=== PATIENT | female | born 1985 | race African-American/Black ===

== ENCOUNTER 2018-07-16 09:11 | Emergency (ER) | payer OTHER ==
[~2018-07-16] VITALS: Ht 188 cm; Wt 131.5 kg
[2018-07-16 09:18] VITALS: BP 133/85
--- NOTE | 2018-07-16 09:30 | PHYS DOC ---
Adult General Chief Complaint Chief Complaint: [facility] HPI Patient is a 32 year old female who presents with left shoulder pain. Patient states she tripped and fell on the ice. She fell backwards landing on the posterior aspect of the left shoulder. She did not strike her head or have loss of consciousness. She landed on the left shoulder. She presents to the ER today complaining of pain with range of motion of that joint. No additional injuries. No additional complaints Review of Systems Review of Systems Constitutional: Denies fever or chills Eyes: Denies change in visual acuity Respiratory: Denies Cardiovascular: No additional information not addressed in HPI : Denies dysuria Musculoskeletal: Denies back pain, shoulder pain as documented above Integument: Denies rash Neurologic: Denies All other systems were reviewed and found to be within normal limits, except as documented in this note. Allergies Allergies Allergies Coded Allergies Type Severity Reaction Last Updated Verified nickel Allergy Unknown 07/16/18 Yes Physical Exam Physical Exam Constitutional: Well developed, well nourished, no acute distress, non-toxic appearance HENT: Normocephalic Eyes: PERRLA, EOMI Neck: Normal range of motion, no tenderness Cardiovascular:Heart rate regular rhythm, no murmur Lungs & Thorax: Bilateral breath sounds clear to auscultation Skin: Warm, dry, no erythema, no rash Back: No tenderness Extremities: no obvious deformity of the left shoulder. ROM is mildly limited 2 /2 pain. 2+ radial pulses. Sensation to light touch intact over all dermatomes Neurologic: Alert and oriented X 3 Psychologic: Affect normal Current Patient Data Vital Signs Vital Signs Date Time Temp Pulse Resp B/P (MAP) Pulse Ox O2 Delivery O2 Flow Rate FiO2 07/16/18 09:18 98.4 65 18 133/85 (101) 98 Room Air 98.4 EKG EKG [] Radiology/Procedures Radiology/Procedures [] Course & Med Decision Making Course & Med Decision Making Pertinent Labs and Imaging studies reviewed. (See chart for details) 09:20: Patient is seen and examined. No acute distress. Xray ordered. 10:50: No acute findings on x-ray. Plan is for discharge home. The patient is agreeable. She is placed on some medications for pain. Advised to follow-up with her primary care doctor. Return to the ER as needed. Dragon Disclaimer Dragon Disclaimer This electronic medical record was generated, in whole or in part, using a voice recognition dictation system. Departure Departure Disposition: HOME, SELF-CARE Condition: GOOD Scripts Tramadol Hcl (TRAMADOL HCL) 50 Mg Tablet 50 MG PO BID PRN for SEVERE PAIN, #20 TAB 0 Refills Prov: MARIA ALEJANDRA MAIN DO 07/16/18 Ibuprofen (IBUPROFEN) 800 Mg Tablet 800 MG PO PRN TID PRN for PAIN, #30 TAB take with food or milk to avoid upsetting stomach Prov: MARIA ALEJANDRA MAIN DO 07/16/18 MARIA ALEJANDRA MAIN DO Jul 16, 2018 09:30
--- NOTE | 2018-07-16 09:53 | RAD ---
Left shoulder, 3 views, 07/16/2018: HISTORY: Left shoulder pain after a fall No fracture or dislocation is identified. IMPRESSION: No acute bony abnormality is detected. Electronically signed by: Rudy Rogers MD (07/16/2018 9:49 AM) [facility]
[2018-07-16] MEDS ORDERED: IBUP-1060 PO (10:08)
[2018-07-16] MEDS ORDERED: TRAM50TA PO (10:08)
== END 2018-07-16 10:28 | disposition home or self-care (01) ==
LOC: ER 09:11
DX: M25.512 Pain in left shoulder (principal); Z91.048 Other nonmedicinal substance allergy status; W00.0XXA Fall on same level due to ice and snow, initial encounter; Y93.89 Activity, other specified; Y92.89 Other specified places as the place of occurrence of the external cause; Y99.8 Other external cause status
CPT/HCPCS: 73030; 99284

== ENCOUNTER 2020-03-06 10:58 | Emergency (ER) | payer OTHER ==
[~2020-03-06] VITALS: Ht 185.4 cm; Wt 129.5 kg
[~2020-03-06 10:58] MED LIST: IBUP-1060 PO; TRAM50TA PO
[2020-03-06] MEDS ORDERED: IV NORMAL SALINE 1000ML BAG 1,000 ML IV SCH (11:14)
--- NOTE | 2020-03-06 11:17 | PHYS DOC ---
Past Medical History Past Medical History: No Pertinent History Past Surgical History: No Surgical History Smoking Status: Never Smoker Alcohol Use: Occasionally Drug Use: None General Adult EDM: Chief Complaint: NAUSEA/VOMITING/DIARRHA HPI: HPI: Patient is a 34 year old female who presents with 2 hours prior to coming emergency room she began feeling very nauseated and vomiting. She states she has not ate since last night. She states last night she had an ice cream at 2100. She denies any pain but states that the muscles are spasming in her stomach because she is having to dry heave. She states that the only reason why she has any epigastric pain. She states she basically just feels nauseated. She states her last stool was this morning and was normal for her. She states that she just got off her menstrual 1 week ago. She denies diarrhea, fever, cough, headache, dizziness, syncope, chest pain, shortness of air, numbness or tingling, vision changes, focal weakness. She denies past medical history except for having 2 babies naturally. She states that before coming her sister in law gave her a nausea pill of which she does not know the name of it but she vomited immediately after taking it. She rates her nausea discomfort at a 10 out of 10. Review of Systems: Review of Systems: Constitutional: Denies fever or chills. Hot flashes [] Eyes: Denies change in visual acuity. [] HENT: Denies nasal congestion or sore throat. [] Respiratory: Denies cough or shortness of breath. [] Cardiovascular: Denies chest pain or edema. [] GI: abdominal pain, nausea, vomiting, denies bloody stools or diarrhea. [] : Denies dysuria. [] Musculoskeletal: Denies back pain or joint pain. [] Integument: Denies rash. [] Neurologic: Denies headache, focal weakness or sensory changes. [] Endocrine: Denies polyuria or polydipsia. [] Lymphatic: Denies swollen glands. [] Psychiatric: Denies depression or anxiety. [] Heart Score: Risk Factors: Risk Factors: DM, Current or recent (<one month) smoker, HTN, HLP, family history of CAD, obesity. Risk Scores: Score 0 - 3: 2.5% MACE over next 6 weeks - Discharge Home Score 4 - 6: 20.3% MACE over next 6 weeks - Admit for Clinical Observation Score 7 - 10: 72.7% MACE over next 6 weeks - Early Invasive Strategies Allergies: Allergies: Allergies Coded Allergies Type Severity Reaction Last Updated Verified nickel Allergy Unknown 07/16/18 Yes Physical Exam: PE: Constitutional: Well developed, well nourished, no acute distress, non-toxic appearance. [] HENT: Normocephalic, atraumatic, bilateral external ears normal, oropharynx moist, no oral exudates, nose normal. [] Eyes: PERRLA, EOMI, conjunctiva normal, no discharge. [] Neck: Normal range of motion, no tenderness, supple, no stridor. [] Cardiovascular:Heart rate regular rhythm, no murmur [] Lungs & Thorax: Bilateral breath sounds clear to auscultation [] Abdomen: Bowel sounds normal, soft, no tenderness, no masses, no pulsatile masses. [] Skin: Warm, dry, no erythema, no rash. [] Back: No tenderness, no CVA tenderness. [] Extremities: No tenderness, no cyanosis, no clubbing, ROM intact, no edema. [] Neurologic: Alert and oriented X 3, normal motor function, normal sensory function, no focal deficits noted. [] Psychologic: Affect normal, judgement normal, mood normal. Tearful[] EKG: EK and read by Dr Mueller as Sinus Rhythm and no STEMI[] Radiology/Procedures: Radiology/Procedures: [] Impression: [facility] [address] [place] [address] IMAGING REPORT Signed PATIENT: DARYA LEE RACCOUNT: [id number] : 1985 LOCATION: ER AGE: 34 SEX: F EXAM STATUS: REG ER ORD. PHYSICIAN: VERONICA MICHAELS APRN REASON: upper abd pain and vomiting PROCEDURE: CHEST PA & LATERAL INDICATION: Reason: upper abd pain and vomiting / Spl. Instructions: / History: COMPARISON: None. FINDINGS: Frontal and lateral views of the chest obtained Cardiac silhouette is near the upper limits of normal in size. Mild hazy opacities at the lung bases IMPRESSION: * Mild haziness at lung bases which could be secondary to atelectasis although an early infiltrate could have this appearance as well. Electronically signed by: Elver Samson MD (03/06/2020 1:20 PM) [id number] DICTATED and SIGNED BY: ELVER SAMSON MD DATE: 03/06/20 1320 [facility] [address] [place] [address] IMAGING REPORT Signed PATIENT: DARYA LEE RACCOUNT: [id number] : 1985 LOCATION: ER AGE: 34 SEX: F EXAM STATUS: REG ER ORD. PHYSICIAN: VERONICA MICHAELS APRN REASON: nausea and vomiting PROCEDURE: CT ABD PELV W/ IV CONTRST ONLY EXAM: CT Abdomen and Pelvis with IV contrast CLINICAL HISTORY: Nausea and vomiting. COMPARISON: None. TECHNIQUE: Helical CT of the abdomen and pelvis was performed following the administration of IV contrast. Axial, coronal and sagittal reformatted images were generated. ---PQRS compliance statement - One or more of the following individualized dose reduction techniques were utilized for this study: 1. Automated exposure control 2. Adjustment of the mA and/or kV according to patient size 3. Use of iterative reconstruction technique--- FINDINGS: Lower chest: Motion artifact in the lung bases limits evaluation. Within these constraints, the lung bases are clear. Abdomen and pelvis: Liver and biliary system: Liver is enlarged measuring 23.5 cm in length. No focal liver lesion. Mild hepatic hypoattenuation likely fatty liver. Gallbladder is contracted but otherwise unremarkable. Spleen: Unremarkable Pancreas: Unremarkable Adrenal glands: Unremarkable Kidneys: Symmetric nephrograms. No focal renal lesion. No hydronephrosis. No hydroureter. Lymph nodes/retroperitoneum: No abdominal or pelvic lymphadenopathy. Vessels: Aorta is normal in caliber. Bowel/Peritoneal cavity: Moderate colonic stool content is seen. No small or large bowel dilatation. No bowel obstruction. Appendix is normal. No abdominal or pelvic ascites. Abdominal wall: Trace fat-containing periumbilical hernia is seen. Bladder: Borderline wall thickening may be seen with cystitis or under distended state. Bones: Partial lumbarization of S1 with degenerative changes centered at L5-S1 and associated endplate bone sclerosis. IMPRESSION: 1. Hepatomegaly with hepatic hypoattenuation, fatty liver. 2. No small or large bowel dilatation. 3. Borderline wall thickening may be seen with cystitis or under distended state. Electronically signed by: Sheng Thomson MD (03/06/2020 1:30 PM) [facility] DICTATED and SIGNED BY: SHENG THOMSON MD DATE: 03/06/20 1330 Course & Med Decision Making: Course & Med Decision Making Pertinent Labs and Imaging studies reviewed. (See chart for details) COVID-19 CRITERIA: The patient was evaluated during the global COVID-19 pandemic, and that diagnosis was suspected/considered upon their initial presentation. Their evaluation, treatment and testing was consistent with current guidelines for patients who present with complaints or symptoms that may be related to COVID-19. See HPI. Alert and oriented x4. Ambulatory with steady gait. Speaks in full clear sentences. Tearful. Lungs are clear to auscultation all lobes. Abdomen soft and nontender. Chest x-ray shows some mild haziness in bilateral lower lobes. CT shows acute cystitis. Patient will be placed on Keflex antibiotic and given Zofran prescriptions. Patient follow-up with her primary care physician. Patient states she is feeling much better. Patient has not vomited since she has been in the ED. [] Dragon Disclaimer: Dragon Disclaimer: This electronic medical record was generated, in whole or in part, using a voice recognition dictation system. COVID-19 Patient Risks: Age 65 or older: No Sign of co-morbidity: Yes Exp to person + for COVID: No Exp to PUI: No Travel from affected area: No Lower respiratory symptoms: No Fever: No Other: Yes (NAUSEA AND VOMITING) PPE Use: Full PPE with N95 mask or PAPR: Yes Departure Departure Impression: Primary Impression: UTI (urinary tract infection) Qualified Codes: N30.00 - Acute cystitis without hematuria Additional Impression: Nausea & vomiting Qualified Codes: R11.2 - Nausea with vomiting, unspecified Disposition: HOME, SELF-CARE Condition: STABLE Referrals: MAX SAMSON MD (PCP) Patient Instructions: Nausea and Vomiting, [id number], Urinary Tract Infection Additional Instructions: Follow-up with your primary care physician. Take medication as prescribed and with food. Slowly advance your diet. Drink plenty of fluids. Scripts Ondansetron (ONDANSETRON ODT) 4 Mg Tab.rapdis 1 TAB PO PRN Q6-8HRS, #20 TAB Prov: VERONICA MCIHAELS APRN 03/06/20 Cephalexin (KEFLEX) 500 Mg Capsule 1 CAP PO BID for 7 Days, #14 CAP 0 Refills Prov: VERONICA MICHAELS APRN 03/06/20 Justicifation of Admission Dx: Justifications for Admission: Justification of Admission Dx: N/A VREONICA MICHAELS APRN Mar 06, 2020 11:17
[2020-03-06 11:40] LABS: BASO % 0 % (0-3); EOS # 0.1 x10^3/uL (0.0-0.7); EOS % 1 % (0-3); HEMOGLOBIN 11.5 g/dL (12.0-15.5); LYMPH % 14 % (24-48); MEAN CORPUSCULAR HEMOGLOBIN 25 pg (25-35); MEAN CORPUSCULAR HGB CONC 31 g/dL (31-37); MEAN CORPUSCULAR VOLUME 79 fL (79-100); MONO # 0.3 x10^3/uL (0.0-1.1); MONO % 5 % (0-9); NEUT # 5.3 x10^3/uL (1.8-7.7); NEUT % 80 % (31-73); PLATELET COUNT 224 x10^3/uL (140-400); RED BLOOD COUNT 4.67 x10^6/uL (3.50-5.40); RED CELL DISTRIBUTION WIDTH 16.5 % (11.5-14.5); WHITE BLOOD COUNT 6.7 x10^3/uL (4.0-11.0)
[2020-03-06] MEDS ORDERED: FAMOTIDINE 20 MG/2 ML VIAL IVP ONE (11:45)
[2020-03-06] MEDS ORDERED: ONDANSETRON PF 4 MG/2 ML VIAL. IVP ONE (11:45)
[2020-03-06 11:49] LABS: PROTHROMBIN TIME PATIENT 11.7 SEC (11.7-14.0)
[2020-03-06 11:53] LABS: CALCIUM 9.4 mg/dL (8.5-10.1); GFR 76.3; POTASSIUM 3.8 mmol/L (3.5-5.1)
[2020-03-06 11:59] LABS: ALBUMIN/GLOBULIN RATIO 1.1 (1.0-1.7); TOTAL BILIRUBIN 0.2 mg/dL (0.2-1.0); TOTAL PROTEIN 7.8 g/dL (6.4-8.2)
[2020-03-06] MEDS ORDERED: IOHEXOL 300 MG/ML 100ML VIAL. IV ONE (12:15)
[2020-03-06] MEDS ORDERED: CONTRAST GIVEN. MC PRN (12:15)
[2020-03-06 12:45] LABS: BILIRUBIN,URINE NEGATIVE (NEG); CLARITY,URINE CLEAR; COLOR,URINE YELLOW; NITRITE,URINE NEGATIVE (NEG); PROTEIN,URINE NEGATIVE (NEG-TRACE); UROBILINOGEN,URINE 0.2 mg/dL (0.2 mg/dL)
[2020-03-06 12:54] LABS: BACTERIA,URINE FEW /HPF (0-FEW); RBC,URINE 0 /HPF (0-2); SQUAMOUS EPITHELIAL CELL,UR MOD /LPF
[2020-03-06 12:55] LABS: BARBITURATES NEG (NEG); BENZODIAZEPINES NEG (NEG); CANNABINOIDS POS (NEG); COCAINE NEG (NEG); METHADONE NEG (NEG); OPIATES NEG (NEG); PHENCYCLIDINE NEG (NEG)
--- NOTE | 2020-03-06 13:02 | EKG ---
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
[2020-03-06 13:07] LABS: AMPHETAMINE/METHAMPHETAMINE NEG (NEG)
[2020-03-06 13:08] VITALS: BP 153/85
--- NOTE | 2020-03-06 13:23 | RAD ---
INDICATION: Reason: upper abd pain and vomiting / Spl. Instructions: / History: COMPARISON: None. FINDINGS: Frontal and lateral views of the chest obtained Cardiac silhouette is near the upper limits of normal in size. Mild hazy opacities at the lung bases IMPRESSION: * Mild haziness at lung bases which could be secondary to atelectasis although an early infiltrate could have this appearance as well. Electronically signed by: Alistair Roberts MD (03/06/2020 1:20 PM) [id number]
--- NOTE | 2020-03-06 13:33 | RAD ---
EXAM: CT Abdomen and Pelvis with IV contrast CLINICAL HISTORY: Nausea and vomiting. COMPARISON: None. TECHNIQUE: Helical CT of the abdomen and pelvis was performed following the administration of IV contrast. Axial, coronal and sagittal reformatted images were generated. ---PQRS compliance statement - One or more of the following individualized dose reduction techniques were utilized for this study: 1. Automated exposure control 2. Adjustment of the mA and/or kV according to patient size 3. Use of iterative reconstruction technique--- FINDINGS: Lower chest: Motion artifact in the lung bases limits evaluation. Within these constraints, the lung bases are clear. Abdomen and pelvis: Liver and biliary system: Liver is enlarged measuring 23.5 cm in length. No focal liver lesion. Mild hepatic hypoattenuation likely fatty liver. Gallbladder is contracted but otherwise unremarkable. Spleen: Unremarkable Pancreas: Unremarkable Adrenal glands: Unremarkable Kidneys: Symmetric nephrograms. No focal renal lesion. No hydronephrosis. No hydroureter. Lymph nodes/retroperitoneum: No abdominal or pelvic lymphadenopathy. Vessels: Aorta is normal in caliber. Bowel/Peritoneal cavity: Moderate colonic stool content is seen. No small or large bowel dilatation. No bowel obstruction. Appendix is normal. No abdominal or pelvic ascites. Abdominal wall: Trace fat-containing periumbilical hernia is seen. Bladder: Borderline wall thickening may be seen with cystitis or under distended state. Bones: Partial lumbarization of S1 with degenerative changes centered at L5-S1 and associated endplate bone sclerosis. IMPRESSION: 1. Hepatomegaly with hepatic hypoattenuation, fatty liver. 2. No small or large bowel dilatation. 3. Borderline wall thickening may be seen with cystitis or under distended state. Electronically signed by: Sheng Tony MD (03/06/2020 1:30 PM) WILL
[2020-03-06] MEDS ORDERED: ONDA4TAB12 PO (13:51)
[2020-03-06] MEDS ORDERED: CEPH-264 PO (13:51)
--- NOTE | 2020-03-08 10:42 | NUR ---
IP: Informed pt of negative COVID results. Pt verbalized understanding.
== END 2020-03-06 14:06 | disposition home or self-care (01) ==
LOC: ER 10:58
DX: N30.00 Acute cystitis without hematuria (principal); R11.2 Nausea with vomiting, unspecified; Z20.818 Contact with and (suspected) exposure to other bacterial communicable diseases; R10.13 Epigastric pain; Z88.8 Allergy status to other drugs, medicaments and biological substances
CPT/HCPCS: 36415; 71046; 74177; 80053; 80307; 81001; 81025; 83690; 84484; 85025; 85610; 87086; 93005; 96361; 96374; 96375; 99285; J2405; J3490; J7030; Q9967; U0003

== ENCOUNTER 2020-03-12 09:23 | Emergency (ER) | payer OTHER ==
[~2020-03-12] VITALS: Ht 185.4 cm; Wt 127.2 kg
[~2020-03-12 09:23] MED LIST changes: +CEPH-264 PO; +ONDA4TAB12 PO
[2020-03-12 11:04] LABS: BILIRUBIN,URINE NEGATIVE (NEG); CLARITY,URINE CLEAR; COLOR,URINE YELLOW; NITRITE,URINE NEGATIVE (NEG); PROTEIN,URINE NEGATIVE (NEG-TRACE)
[2020-03-12 11:32] LABS: BASO % 0 % (0-3); EOS # 0.1 x10^3/uL (0.0-0.7); EOS % 1 % (0-3); HEMATOCRIT 36.7 % (36.0-47.0); HEMOGLOBIN 11.7 g/dL (12.0-15.5); LYMPH # 1.1 x10^3/uL (1.0-4.8); LYMPH % 15 % (24-48); MEAN CORPUSCULAR HEMOGLOBIN 25 pg (25-35); MEAN CORPUSCULAR HGB CONC 32 g/dL (31-37); MEAN CORPUSCULAR VOLUME 79 fL (79-100); MONO # 0.4 x10^3/uL (0.0-1.1); MONO % 5 % (0-9); NEUT # 5.6 x10^3/uL (1.8-7.7); NEUT % 78 % (31-73); PLATELET COUNT 249 x10^3/uL (140-400); RED BLOOD COUNT 4.68 x10^6/uL (3.50-5.40); RED CELL DISTRIBUTION WIDTH 16.1 % (11.5-14.5); WHITE BLOOD COUNT 7.2 x10^3/uL (4.0-11.0)
[2020-03-12 11:33] LABS: SQUAMOUS EPITHELIAL CELL,UR MANY /LPF
[2020-03-12 11:34] LABS: BACTERIA,URINE FEW /HPF (0-FEW); RBC,URINE OCC /HPF (0-2)
[2020-03-12 11:40] LABS: CALCIUM 9.4 mg/dL (8.5-10.1); CREATININE 0.9 mg/dL (0.6-1.0); GFR 86.2; POTASSIUM 4.2 mmol/L (3.5-5.1)
[2020-03-12] MEDS ORDERED: ONDANSETRON PF 4 MG/2 ML VIAL. IVP ONE (11:45)
[2020-03-12 11:48] LABS: ALBUMIN 3.9 g/dL (3.4-5.0); TOTAL BILIRUBIN 0.2 mg/dL (0.2-1.0); TOTAL PROTEIN 7.8 g/dL (6.4-8.2)
--- NOTE | 2020-03-12 12:58 | RAD ---
EXAMINATION: ABDOMEN LTD, 03/12/2020 11:39 AM CLINICAL INDICATION: Right upper quadrant pain COMPARISON: CT abdomen and pelvis 03/06/2020 TECHNIQUE: Grayscale and color Doppler ultrasound imaging performed of the right upper quadrant FINDINGS: Liver: The liver is enlarged measuring 20 cm in length and diffusely increased in echogenicity. No focal liver lesion identified. Gallbladder: The gallbladder is not visualized. Bile ducts: Intrahepatic bile ducts are nondilated. The common bile duct measure 6 mm in diameter, within normal limits. Pancreas: Not well visualized. Right kidney: The right kidney is normal in size measuring 10.5 x 4.7 x 4.4 cm. There is normal cortical thickness and echogenicity. No hydronephrosis. Miscellaneous: No free fluid. Inferior vena cava is patent at the level of the liver. IMPRESSION: 1. Hepatomegaly and hepatic steatosis. 2. Nonvisualized gallbladder, possibly contracted. Electronically signed by: Mercedes Forrest MD (03/12/2020 12:55 PM) [id number]
[2020-03-12 14:20] VITALS: BP 125/73
[2020-03-12] MEDS ORDERED: ONDA4TAB7 PO (14:27)
[2020-03-12] MEDS ORDERED: SUCR1TAB35 PO (14:27)
--- NOTE | 2020-03-12 14:28 | PHYS DOC ---
Past Medical History Past Medical History: No Pertinent History Past Surgical History: No Surgical History Smoking Status: Never Smoker Alcohol Use: Occasionally Drug Use: None Social History Narrative: LAST USED [place] 2 DAYS AGO. General Adult EDM: Chief Complaint: ABDOMINAL PAIN HPI: HPI: Patient is 34-year-old female presents to the emergency room complaining of epigastric and right upper quadrant pain with associated nausea and vomiting. She was seen here a week ago for similar symptoms. She states she was doing slightly better after she was seen here with home medications. She states that this morning the pain got significantly worse and so she came here for evaluation. She states it feels like a burning cramping pain. She states that nausea is what bothers her the most. She denies any fever. She is not had any diarrhea or constipation. She is never had surgery in her abdomen previously. She does admit to eating large amount of processed and high fat foods. Review of Systems: Review of Systems: General: Denies fever, chills, sweats, fatigue Eyes: Denies drainage, blurred vision, eye redness HENT: Denies rhinorrhea, sore throat, earache Respiratory: Denies cough, shortness of breath, wheezing Cardiac: Denies edema, palpitations, chest pain GI: Reports nausea, vomiting, abdominal pain MSK: Denies neck pain[] Skin: Denies rash, jaundice Neuro: Denies headache, dizziness Psychiatric: Denies SI/HI Heart Score: Risk Factors: Risk Factors: DM, Current or recent (<one month) smoker, HTN, HLP, family history of CAD, obesity. Risk Scores: Score 0 - 3: 2.5% MACE over next 6 weeks - Discharge Home Score 4 - 6: 20.3% MACE over next 6 weeks - Admit for Clinical Observation Score 7 - 10: 72.7% MACE over next 6 weeks - Early Invasive Strategies Current Medications: Current Medications Medications (Trade) Dose Ordered Sig/Mg Start Time Stop Time Status Last Admin Dose Admin Ondansetron HCl (Zofran) 4 mg 1X ONCE 03/12/20 11:45 03/12/20 11:46 DC 03/12/20 12:19 4 MG Allergies: Allergies: Allergies Coded Allergies Type Severity Reaction Last Updated Verified nickel Allergy Unknown 07/16/18 Yes Physical Exam: PE: General: Awake, alert, NAD. Well Nourished, well hydrated. Cooperative HEENT: Atraumatic, EOMI, PERRL, airway patent, moist oral mucosa Neck: Supple, trachea midline Respiratory: CTA bilaterally, normal effort, no wheezing/crackles CV: RRR, no murmur, cap refill <2 GI: Soft, nondistended, epigastric and right upper quadrant tenderness, no Walter sign, no masses MSK: No obvious deformities Skin: Warm, dry, intact Neuro: A&O x3, speech NL, sensory and motor grossly intact, no focal deficits Psych: Normal affect, normal mood, not suicidal or homicidal Current Patient Data: Labs: Laboratory Tests Test 03/12/20 09:38 03/12/20 09:55 03/12/20 11:20 Urine Collection Type Unknown Urine Color Yellow Urine Clarity Clear Urine pH 7.0 (<5.0-8.0) Urine Specific [place] 1.025 (1.000-1.030) Urine Protein Negative mg/dL (NEG-TRACE) Urine Glucose (UA) Negative mg/dL (NEG) Urine Ketones (Stick) Negative mg/dL (NEG) Urine Blood Negative (NEG) Urine Nitrite Negative (NEG) Urine Bilirubin Negative (NEG) Urine Urobilinogen Dipstick 1.0 mg/dL (0.2 mg/dL) Urine Leukocyte Esterase Moderate (NEG) Urine RBC Occ /HPF (0-2) Urine WBC 5-10 /HPF (0-4) Urine Squamous Epithelial Cells Many /LPF Urine Bacteria Few /HPF (0-FEW) Urine Mucus Mod /LPF POC Urine HCG, Qualitative Hcg negative (Negative) White Blood Count 7.2 x10^3/uL (4.0-11.0) Red Blood Count 4.68 x10^6/uL (3.50-5.40) Hemoglobin 11.7 g/dL (12.0-15.5) L Hematocrit 36.7 % (36.0-47.0) Mean Corpuscular Volume 79 fL (79-100) Mean Corpuscular Hemoglobin 25 pg (25-35) Mean Corpuscular Hemoglobin Concent 32 g/dL (31-37) Red Cell Distribution Width 16.1 % (11.5-14.5) H Platelet Count 249 x10^3/uL (140-400) Neutrophils (%) (Auto) 78 % (31-73) H Lymphocytes (%) (Auto) 15 % (24-48) L Monocytes (%) (Auto) 5 % (0-9) Eosinophils (%) (Auto) 1 % (0-3) Basophils (%) (Auto) 0 % (0-3) Neutrophils # (Auto) 5.6 x10^3/uL (1.8-7.7) Lymphocytes # (Auto) 1.1 x10^3/uL (1.0-4.8) Monocytes # (Auto) 0.4 x10^3/uL (0.0-1.1) Eosinophils # (Auto) 0.1 x10^3/uL (0.0-0.7) Basophils # (Auto) 0.0 x10^3/uL (0.0-0.2) Sodium Level 138 mmol/L (136-145) Potassium Level 4.2 mmol/L (3.5-5.1) Chloride Level 104 mmol/L (98-107) Carbon Dioxide Level 23 mmol/L (21-32) Anion Gap 11 (6-14) Blood Urea Nitrogen 15 mg/dL (7-20) Creatinine 0.9 mg/dL (0.6-1.0) Estimated GFR (Cockcroft-Gault) 86.2 BUN/Creatinine Ratio 17 (6-20) Glucose Level 123 mg/dL (70-99) H Calcium Level 9.4 mg/dL (8.5-10.1) Total Bilirubin 0.2 mg/dL (0.2-1.0) Aspartate Amino Transferase (AST) 13 U/L (15-37) L Alanine Aminotransferase (ALT) 20 U/L (14-59) Alkaline Phosphatase 78 U/L (46-116) Total Protein 7.8 g/dL (6.4-8.2) Albumin 3.9 g/dL (3.4-5.0) Albumin/Globulin Ratio 1.0 (1.0-1.7) Lipase 79 U/L (73-393) Laboratory Tests 03/12/20 11:20 Laboratory Tests 03/12/20 11:20 Vital Signs: Vital Signs Date Time Temp Pulse Resp B/P (MAP) Pulse Ox O2 Delivery O2 Flow Rate FiO2 03/12/20 09:33 98.1 78 16 135/85 (102) 100 Room Air 98.1 EKG: EKG: [] Radiology/Procedures: Radiology/Procedures: [] Course & Med Decision Making: Course & Med Decision Making Pertinent Labs and Imaging studies reviewed. (See chart for details) Patient is 34-year-old female who presents to the emergency room complaining of epigastric and right upper quadrant pain with associated nausea and vomiting. Differential diagnosis includes biliary colic, gastritis, peptic ulcer disease, cholecystitis. Abdominal labs including CBC, CMP, lipase were ordered. Patient was given fluids, Zofran, Pepcid. Work-up is unremarkable. It is likely that patient has a peptic ulcer or gastritis. She will be placed on Carafate. I recommended that she follow-up with GI. Patient's test results and vitals while in the ED were fully reviewed and discussed with the patient. Patient is stable and at this time does not need admission to the hospital. We have discussed strict return precautions and the importance of following up with their Primary Care Physician. Patient stated understanding and was given an opportunity to ask any questions. Patient is in agreement with plan. Dragon Disclaimer: Dragon Disclaimer: This electronic medical record was generated, in whole or in part, using a voice recognition dictation system. Departure Departure Impression: Primary Impression: Acute gastritis Disposition: HOME, SELF-CARE Condition: STABLE Referrals: MAX SAMSON MD (PCP) Patient Instructions: Gastritis, Adult, [id number] Scripts Ondansetron Hcl (ZOFRAN) 4 Mg Tablet 1 TAB PO PRN Q6-8HRS for nausea, #12 TAB Prov: FITO LITTLE MD 03/12/20 Sucralfate (CARAFATE) 1 Gm Tablet 1 TAB PO QID for 30 Days, #120 TAB 0 Refills Prov: FITO LITTLE MD 03/12/20 Justicifation of Admission Dx: Justifications for Admission: Justification of Admission Dx: N/A FITO LITTLE MD Mar 12, 2020 14:28
== END 2020-03-12 14:33 | disposition home or self-care (01) ==
LOC: ER 09:23
DX: K29.00 Acute gastritis without bleeding (principal); R10.11 Right upper quadrant pain; R11.2 Nausea with vomiting, unspecified; F12.90 Cannabis use, unspecified, uncomplicated
CPT/HCPCS: 36415; 76705; 80053; 81001; 81025; 83690; 85025; 96374; 99285; J2405

== ENCOUNTER 2020-04-23 09:25 | Emergency (ER) | payer OTHER ==
[~2020-04-23] VITALS: Ht 186.7 cm; Wt 127.3 kg
[~2020-04-23 09:25] MED LIST changes: +ONDA4TAB7 PO; +SUCR1TAB35 PO
[2020-04-23 10:45] VITALS: BP 154/75
[2020-04-23] MEDS ORDERED: SUCR1TAB35 PO (11:21)
--- NOTE | 2020-04-23 11:21 | PHYS DOC ---
Past Medical History Past Medical History: No Pertinent History Past Surgical History: No Surgical History Smoking Status: Never Smoker Alcohol Use: Occasionally Drug Use: None General Adult EDM: Chief Complaint: MEDICATION REFILL HPI: HPI: Patient is a 34 year old 34-year-old female patient presenting to the ED today requesting a refill of Carafate which she takes for stomach ulcers. She ran out of the medication 3 days ago. She states her PCP is not in the office this morning. She states this morning she had mild epigastric abdominal pain consistent with her stomach ulcers. Denies any nausea vomiting. Review of Systems: Review of Systems: Constitutional: Denies fever or chills. [] Eyes: Denies change in visual acuity. [] HENT: Denies nasal congestion or sore throat. [] Respiratory: Denies cough or shortness of breath. [] Cardiovascular: Denies chest pain or edema. [] GI: Reports epigastric abdominal pain consistent with stomach ulcers nausea, vomiting, bloody stools or diarrhea. [] : Denies dysuria. [] Musculoskeletal: Denies back pain or joint pain. [] Integument: Denies rash. [] Neurologic: Denies headache, focal weakness or sensory changes. [] Psychiatric: Denies depression or anxiety. [] Heart Score: Risk Factors: Risk Factors: DM, Current or recent (<one month) smoker, HTN, HLP, family history of CAD, obesity. Risk Scores: Score 0 - 3: 2.5% MACE over next 6 weeks - Discharge Home Score 4 - 6: 20.3% MACE over next 6 weeks - Admit for Clinical Observation Score 7 - 10: 72.7% MACE over next 6 weeks - Early Invasive Strategies Allergies: Allergies: Allergies Coded Allergies Type Severity Reaction Last Updated Verified nickel Allergy Unknown 07/16/18 Yes Physical Exam: PE: Constitutional: Well developed, well nourished, no acute distress, non-toxic appearance. [] HENT: Normocephalic, atraumatic, bilateral external ears normal, oropharynx moist, no oral exudates, nose normal. [] Eyes: PERRLA, EOMI, conjunctiva normal, no discharge. [] Neck: Normal range of motion, no tenderness, supple, no stridor. [] Cardiovascular:Heart rate regular rhythm, no murmur [] Lungs & Thorax: Bilateral breath sounds clear to auscultation [] Abdomen: Bowel sounds normal, soft, no tenderness, no masses, no pulsatile masses. [] Skin: Warm, dry, no erythema, no rash. [] Back: No tenderness, no CVA tenderness. [] Extremities: No tenderness, no cyanosis, no clubbing, ROM intact, no edema. [] Neurologic: Alert and oriented X 3, normal motor function, normal sensory function, no focal deficits noted. [] Psychologic: Affect normal, judgement normal, mood normal. [] Current Patient Data: Vital Signs: Vital Signs Date Time Temp Pulse Resp B/P (MAP) Pulse Ox O2 Delivery O2 Flow Rate FiO2 04/23/20 10:45 98.3 58 16 154/75 (101) 100 Room Air 98.3 EKG: EKG: [] Radiology/Procedures: Radiology/Procedures: [] Course & Med Decision Making: Course & Med Decision Making Pertinent Labs and Imaging studies reviewed. (See chart for details) This is a 34-year-old female patient presenting to the ED today for Carafate refill for stomach ulcers. Refill given to patient. Follow-up with her own PCP Cira Disclaimer: Cira Disclaimer: This electronic medical record was generated, in whole or in part, using a voice recognition dictation system. Departure Departure Impression: Primary Impression: Medication refill Disposition: 01 DC HOME SELF CARE/HOMELESS Condition: STABLE Referrals: MAX SAMSON MD (PCP) follow up in 1-2 weeks Patient Instructions: Medication Refill, Emergency Department Additional Instructions: We refilled your medicine. Consider following up with your own doctor in the next 1 to 2 weeks. Scripts Sucralfate (CARAFATE) 1 Gm Tablet 1 TAB PO QID for 30 Days, #120 TAB 0 Refills Prov: SHAWN WEIR APRN 04/23/20 SHAWN WEIR APRN Apr 23, 2020 11:21
== END 2020-04-23 11:27 | disposition home or self-care (01) ==
LOC: ER 09:25
DX: R10.13 Epigastric pain (principal); Z76.0 Encounter for issue of repeat prescription; Z88.8 Allergy status to other drugs, medicaments and biological substances
CPT/HCPCS: 99281

== ENCOUNTER → 2020-08-31 | Outpatient (CLI) | payer OTHER ==
[~2020-08-31] VITALS: Ht 185.4 cm; Wt 154.2 kg
[~2020-08-31] MED LIST changes: +NORMAL SALINE IV ONE; +SINCALIDE IV ONE
--- NOTE | 2020-08-31 13:12 | RAD ---
INDICATION: Abdomen pain. COMPARISON: Ultrasound from March 12, 2020 TECHNIQUE: 5.5mCi of Tc99m Choletec was injected intravenously followed by scintigraphic images of the abdomen. 3 mcg of CCK was then injected and a gallbladder ejection fraction was calculated. FINDINGS: Appropriate radiotracer clearance from the blood pool. Appropriate radiotracer excretion into the biliary tree. Prompt passage of contrast into the small bowel. Visualization of the gallbladder prior to the 60 minute time point. Gallbladder ejection fraction is 27 percent. IMPRESSION: 1. No scintigraphic evidence of acute cholecystitis or high grade biliary obstruction. 2. Gallbladder ejection fraction is decreased. Would correlate for possible causes such as mild bilia ry dyskinesia. Electronically signed by: Alistair Roberts MD (08/31/2020 1:09 PM) [id number]
== END ==
LOC: NM 08:58
PROVIDERS: ATTEND Internal Medicine Gastroenterology
DX: R10.13 Epigastric pain (principal)
CPT/HCPCS: 78227; A9537; J2805

== ENCOUNTER 2020-10-09 07:37 | Emergency (ER) | payer OTHER ==
[~2020-10-09] VITALS: Ht 182.9 cm; Wt 127.3 kg
[~2020-10-09 07:37] MED LIST changes: -NORMAL SALINE IV ONE; -SINCALIDE IV ONE
[2020-10-09 08:06] LABS: BILIRUBIN,URINE NEGATIVE (NEG); CLARITY,URINE CLEAR; COLOR,URINE YELLOW; NITRITE,URINE NEGATIVE (NEG); PROTEIN,URINE NEGATIVE (NEG-TRACE); UROBILINOGEN,URINE 0.2 mg/dL (0.2 mg/dL)
[2020-10-09 08:24] LABS: BACTERIA,URINE FEW /HPF (0-FEW); RBC,URINE 0 /HPF (0-2)
[2020-10-09] MEDS: IV NORMAL SALINE 1000ML BAG 1,000 ML IV ONE (08:57)
[2020-10-09] MEDS: ONDANSETRON PF 4 MG/2 ML VIAL. IVP ONE (08:59)
[2020-10-09] MEDS: MORPHINE SULFATE 10 MG/ML VIAL. IV ONE (09:00)
--- NOTE | 2020-10-09 09:00 | RAD ---
US ABDOMEN LTD History: Reason: RUQ abd pain / Spl. Instructions: / History: Comparison: Ultrasound March 12, 2020. HIDA scan August 31, 2020 Technique: Transabdominal ultrasound images are obtained of the right upper quadrant. Findings: Liver is increased in echogenicity. Right hepatic lobe measures 20.1 cm. Portal flow is hepatopedal. Degraded evaluation of the gallbladder due to overlying structures. Common bile duct measures 5 mm in diameter. Visualized pancreas is not well seen due to prominent bowel gas. The right kidney measures 12.9 x 5.4 x 4.4 cm. No hydronephrosis. Visualized portions of the aorta and IVC have normal caliber. IMPRESSION: 1. Hepatomegaly with increased echotexture, may indicate steatosis. 2. Degraded evaluation of the gallbladder, potentially contracted. Electronically signed by: Joseluis Lara DO (10/09/2020 8:57 AM) [id number]
[2020-10-09 09:30] LABS: BASO % 1 % (0-3); EOS # 0.2 x10^3/uL (0.0-0.7); EOS % 3 % (0-3); HEMATOCRIT 31.9 % (36.0-47.0); HEMOGLOBIN 9.6 g/dL (12.0-15.5); LYMPH # 1.1 x10^3/uL (1.0-4.8); LYMPH % 15 % (24-48); MEAN CORPUSCULAR HEMOGLOBIN 23 pg (25-35); MEAN CORPUSCULAR HGB CONC 30 g/dL (31-37); MEAN CORPUSCULAR VOLUME 75 fL (79-100); MONO # 0.3 x10^3/uL (0.0-1.1); MONO % 4 % (0-9); NEUT # 5.4 x10^3/uL (1.8-7.7); NEUT % 77 % (31-73); PLATELET COUNT 219 x10^3/uL (140-400); RED BLOOD COUNT 4.23 x10^6/uL (3.50-5.40); RED CELL DISTRIBUTION WIDTH 16.6 % (11.5-14.5)
[2020-10-09 09:39] LABS: CALCIUM 8.8 mg/dL (8.5-10.1); GFR 75.9; POTASSIUM 4.7 mmol/L (3.5-5.1)
--- NOTE | 2020-10-09 09:42 | ED.ADGEN ---
Past Medical History Past Medical History: No Pertinent History Past Surgical History: No Surgical History Smoking Status: Never Smoker Alcohol Use: Occasionally Drug Use: None General Adult EDM: Chief Complaint: ABDOMINAL PAIN HPI: HPI: Patient is a 35-year-old female who presents to the emergency room complaining of epigastric or right upper quadrant abdominal pain with some associated vomiting. Patient has been having this pain since March. She states that it has been intermittent since then and she has been told that it is due to her gallbladder. She is a scheduled for surgery in 3 weeks. She is supposed to have surgery with Dr. Aguila. She states this morning the pain came on and would not go away. She states she is not sure she is in a make it 3 weeks for her surgery. She denies any kind of fever, chills, sweats, new abdominal pain, chest pain, shortness of breath. Review of Systems: Review of Systems: Complete ROS is negative unless otherwise documented in HPI Current Medications: Current Medications Medications (Trade) Dose Ordered Sig/Mg Start Time Stop Time Status Last Admin Dose Admin Morphine Sulfate (Morphine Sulfate) 5 mg 1X ONCE 10/09/20 08:15 10/09/20 08:16 DC 10/09/20 09:00 5 MG Ondansetron HCl (Zofran) 4 mg 1X ONCE 10/09/20 08:30 10/09/20 08:53 DC 10/09/20 08:59 4 MG Sodium Chloride 1,000 ml @ 1,000 mls/hr 1X ONCE 10/09/20 08:15 10/09/20 09:14 DC 10/09/20 08:57 1,000 MLS/HR Allergies: Allergies: Allergies Coded Allergies Type Severity Reaction Last Updated Verified nickel Allergy Unknown 07/16/18 Yes Physical Exam: PE: General: Awake, alert, NAD. Well Nourished, well hydrated. Cooperative HEENT: Atraumatic, EOMI, PERRL, airway patent, moist oral mucosa Neck: Supple, trachea midline Respiratory: CTA bilaterally, normal effort, no wheezing/crackles CV: RRR, no murmur, cap refill <2 GI: Soft, nondistended, epigastric and right upper quadrant tenderness, no masses MSK: No obvious deformities Skin: Warm, dry, intact Neuro: A&O x3, speech NL, sensory and motor grossly intact, no focal deficits Psych: Normal affect, normal mood, not suicidal or homicidal Current Patient Data: Labs: Laboratory Tests Test 10/09/20 07:52 10/09/20 07:58 10/09/20 09:15 Urine Collection Type Unknown Urine Color Yellow Urine Clarity Clear Urine pH 6.0 (<5.0-8.0) Urine Specific [place] >=1.030 (1.000-1.030) Urine Protein Negative mg/dL (NEG-TRACE) Urine Glucose (UA) Negative mg/dL (NEG) Urine Ketones (Stick) Negative mg/dL (NEG) Urine Blood Negative (NEG) Urine Nitrite Negative (NEG) Urine Bilirubin Negative (NEG) Urine Urobilinogen Dipstick 0.2 mg/dL (0.2 mg/dL) Urine Leukocyte Esterase Small (NEG) Urine RBC 0 /HPF (0-2) Urine WBC 5-10 /HPF (0-4) Urine Squamous Epithelial Cells Mod /LPF Urine Bacteria Few /HPF (0-FEW) POC Urine HCG, Qualitative Hcg negative (Negative) White Blood Count 7.0 x10^3/uL (4.0-11.0) Red Blood Count 4.23 x10^6/uL (3.50-5.40) Hemoglobin 9.6 g/dL (12.0-15.5) L Hematocrit 31.9 % (36.0-47.0) L Mean Corpuscular Volume 75 fL (79-100) L Mean Corpuscular Hemoglobin 23 pg (25-35) L Mean Corpuscular Hemoglobin Concent 30 g/dL (31-37) L Red Cell Distribution Width 16.6 % (11.5-14.5) H Platelet Count 219 x10^3/uL (140-400) Neutrophils (%) (Auto) 77 % (31-73) H Lymphocytes (%) (Auto) 15 % (24-48) L Monocytes (%) (Auto) 4 % (0-9) Eosinophils (%) (Auto) 3 % (0-3) Basophils (%) (Auto) 1 % (0-3) Neutrophils # (Auto) 5.4 x10^3/uL (1.8-7.7) Lymphocytes # (Auto) 1.1 x10^3/uL (1.0-4.8) Monocytes # (Auto) 0.3 x10^3/uL (0.0-1.1) Eosinophils # (Auto) 0.2 x10^3/uL (0.0-0.7) Basophils # (Auto) 0.0 x10^3/uL (0.0-0.2) Platelet Estimate Adequate (ADEQUATE) Large Platelets Few Hypochromasia Mod Anisocytosis Slight Sodium Level 147 mmol/L (136-145) H Potassium Level 4.7 mmol/L (3.5-5.1) Chloride Level 110 mmol/L (98-107) H Carbon Dioxide Level 26 mmol/L (21-32) Anion Gap 11 (6-14) Blood Urea Nitrogen 16 mg/dL (7-20) Creatinine 1.0 mg/dL (0.6-1.0) Estimated GFR (Cockcroft-Gault) 75.9 BUN/Creatinine Ratio 16 (6-20) Glucose Level 128 mg/dL (70-99) H Calcium Level 8.8 mg/dL (8.5-10.1) Total Bilirubin 0.2 mg/dL (0.2-1.0) Aspartate Amino Transferase (AST) 11 U/L (15-37) L Alanine Aminotransferase (ALT) 19 U/L (14-59) Alkaline Phosphatase 90 U/L (46-116) Total Protein 7.1 g/dL (6.4-8.2) Albumin 3.4 g/dL (3.4-5.0) Albumin/Globulin Ratio 0.9 (1.0-1.7) L Lipase 80 U/L (73-393) Laboratory Tests 10/09/20 09:15 Laboratory Tests 10/09/20 09:15 Vital Signs: Vital Signs Date Time Temp Pulse Resp B/P (MAP) Pulse Ox O2 Delivery O2 Flow Rate FiO2 10/09/20 09:00 97 Room Air 10/09/20 07:55 97.4 77 12 151/86 (107) 97.4 EKG: EKG: [] Heart Score: C/O Chest Pain: N/A Risk Factors: Risk Factors: DM, Current or recent (<one month) smoker, HTN, HLP, family history of CAD, obesity. Risk Scores: Score 0 - 3: 2.5% MACE over next 6 weeks - Discharge Home Score 4 - 6: 20.3% MACE over next 6 weeks - Admit for Clinical Observation Score 7 - 10: 72.7% MACE over next 6 weeks - Early Invasive Strategies Radiology/Procedures: Radiology/Procedures: [] Course & Med Decision Making: Course & Med Decision Making Pertinent Labs and Imaging studies reviewed. (See chart for details) Patient is a 35-year-old female who presents to the emergency room complaining of right upper quadrant abdominal pain. Patient has a known gallbladder disorder. I discussed with her that unless she has acute cholecystitis we lik david will not be able to admit her at this time. Patient was given Zofran and morphine for symptom relief. Lab work will be ordered to evaluate for acute cholecystitis including CBC, CMP, lipase. Ultrasound will also be ordered to evaluate the gallbladder. Lab work and ultrasound are unchanged at this time. Patient will follow up with Dr. Aguila. Patient's test results and vitals while in the ED were fully reviewed and discussed with the patient. Patient is stable and at this time does not need admission to the hospital. We have discussed strict return precautions and the importance of following up with their Primary Care Physician. Patient stated understanding and was given an opportunity to ask any questions. Patient is in agreement with plan. Dragon Disclaimer: Dragon Disclaimer: This electronic medical record was generated, in whole or in part, using a voice recognition dictation system. Departure Departure Impression: Primary Impression: Nausea & vomiting Disposition: 01 HOME / SELF CARE / HOMELESS Condition: IMPROVED Referrals: MAX SAMSON MD (PCP) Patient Instructions: Abdominal Pain Scripts Tramadol Hcl (TRAMADOL HCL) 50 Mg Tablet 50 MG PO Q6HRS PRN for PAIN, #8 TAB Prov: FITO LITTLE MD 10/09/20 Ondansetron (ONDANSETRON ODT) 4 Mg Tab.rapdis 1 TAB PO PRN Q6-8HRS, #16 TAB Prov: FITO LITTLE MD 10/09/20 FITO LITTLE MD Oct 09, 2020 09:42
[2020-10-09 09:44] LABS: ALBUMIN 3.4 g/dL (3.4-5.0); ALBUMIN/GLOBULIN RATIO 0.9 (1.0-1.7); TOTAL BILIRUBIN 0.2 mg/dL (0.2-1.0); TOTAL PROTEIN 7.1 g/dL (6.4-8.2)
[2020-10-09 11:11] LABS: PLT ESTIMATE ADEQUATE (ADEQUATE)
[2020-10-09 11:12] LABS: ANISOCYTOSIS SLIGHT; HYPOCHROMIA MOD
[2020-10-09 11:48] VITALS: BP 157/75
[2020-10-09] MEDS ORDERED: ONDA4TAB12 PO (12:02)
[2020-10-09] MEDS ORDERED: TRAM50TA PO (12:02)
== END 2020-10-09 12:16 | disposition home or self-care (01) ==
LOC: ER 07:37
DX: R11.2 Nausea with vomiting, unspecified (principal); R10.13 Epigastric pain; R10.11 Right upper quadrant pain; Z88.8 Allergy status to other drugs, medicaments and biological substances
CPT/HCPCS: 36415; 76705; 80053; 81001; 81025; 83690; 85025; 96361; 96374; 96375; 99285; J2270; J2405; J7030

== ENCOUNTER → 2020-10-16 | Outpatient (CLI) | payer OTHER ==
[2020-10-09 11:48] VITALS: BP 157/75
[~2020-10-16] MED LIST changes: +OMEP40CA45 PO
== END ==
LOC: LAB 11:17
PROVIDERS: ATTEND Surgery
DX: Z01.812 Encounter for preprocedural laboratory examination (principal); K82.8 Other specified diseases of gallbladder; Z20.822 Contact with and (suspected) exposure to COVID-19
CPT/HCPCS: U0003; U0005

== ENCOUNTER 2020-10-19 07:48 | Day surgery (SDC) | payer OTHER ==
[~2020-10-19] VITALS: Ht 182.9 cm; Wt 158.8 kg
[~2020-10-19 07:48] MED LIST changes: +IV RINGERS,LACTATED 1000ML 1,000 ML IV SCH; +PROCHLORPERAZINE 10 MG/2 ML VIAL. IVP PRN; +ceFAZolin SODIUM 3 GM in IV DEXTROSE 5% 100ML 100 ML IV PRN; +fentaNYL PF VIAL 100 MCG/2 ML VIAL IVP PRN
[2020-10-19] MEDS ORDERED: ACETAMINOPHEN 500 MG TABLET PO ONE (08:00)
[2020-10-19] MEDS ORDERED: PROPOFOL 10 MG/ML (20ML) VIAL. IV ONE ×2 (08:29→10:14)
[2020-10-19] MEDS ORDERED: DEXAMETHASONE SOD PHOS 4 MG/ML VIAL ONE ×2 (08:29→10:14)
[2020-10-19] MEDS ORDERED: ONDANSETRON PF 4 MG/2 ML VIAL. ONE ×2 (08:29→10:14)
[2020-10-19] MEDS ORDERED: ROCURONIUM 50 MG/5 ML VIAL. ONE (08:29)
[2020-10-19] MEDS ORDERED: LIDOCAINE 2% PF 5 ML VIAL. ONE ×2 (08:29→10:14)
[2020-10-19] MEDS ORDERED: MIDAZOLAM HCL/PF 2 MG/2 ML VIAL. ONE (08:33)
[2020-10-19] MEDS ORDERED: SURGICEL HEMOSTAT 4X8 EACH. ONE (09:24)
[2020-10-19] MEDS ORDERED: BUPIVACAINE-EPI 0.25% 30 ML VIAL KIT. ONE (09:24)
[2020-10-19] MEDS ORDERED: NEOSTIGMINE METHYLSULFATE 5 MG/5 ML SYRINGE. ONE (09:53)
[2020-10-19] MEDS ORDERED: GLYCOPYRROLATE 1 MG/5 ML VIAL. ONE (09:53)
[2020-10-19] MEDS ORDERED: fentaNYL PF VIAL 100 MCG/2 ML VIAL ONE (10:02)
[2020-10-19] MEDS ORDERED: KETOROLAC 30 MG/ML VIAL. ONE (10:14)
--- NOTE | 2020-10-19 10:24 | PDOC4 ---
Operative Note Operative Note Date: October 192020 at 1022 Preoperative diagnosis: Chronic cholecystitis cholelithiasis Postoperative diagnosis: Same Procedure: Laparoscopic cholecystectomy Surgeon: Mingo Specimen: Gallbladder Dictation: Patient is a 35-year-old female who is had right upper quadrant abdominal pain ultrasound showing gallstones. Procedure of laparoscopic cholecystectomy was explained to the patient detail risk benefits were also discussed including bleeding infection injury to intra-abdominal contents possible necessitating further open operations alternatives to this procedure al so discussed with the patient who seemed to understand and gave both verbal and written consent to have the procedure performed. Patient was taken to the operating room placed in supine position general anesthesia was initiated once patient was sleeping intubated her abdomen was prepped and draped usual sterile fashion using ChloraPrep. Area just below the umbilicus was injected with quarter percent Marcaine with epinephrine incision was made 11 blade scalpel and a varies needle was placed within the abdomen creating pneumoperitoneum once this was complete the millimeter port was placed and a 5 mm camera was placed within the abdomen abdomen was inspected no other abnormalities were noted. A 5 mm port was placed in the epigastrium a 5 mm port was placed in the right midabdomen and a 5 mm port was placed in the right lateral abdomen. The dome of the gallbladder is grasped retracted cephalad the infundibulum the gallbladder is grasped retracted laterally exposing the triangle of adherent tissues of the triangle were taken down exposing the cystic duct and cystic artery both were doubly clipped and transected the gallbladder is taken off the liver with hook electrocautery placed in Endo Catch bag removed and the umbilicus. Right upper quadrant is irrigated and suctioned dry hemostasis deemed be appropriate the pneumoperitoneum was reduced all ports were removed the fascial defect at the umbilicus was closed with a [id number] 0 Vicryl suture and the skin was reapproximated all port sites for subcuticular Monocryl Mastisol Steri-Strips and island dressings were applied. Patient was awakened and extubated in the operating room taken to recovery in stable condition all sponge instrument needle counts listed as correct estimated blood loss 10 mL. MATT AUGUSTINE MD Oct 19, 2020 10:24
--- NOTE | 2020-10-19 10:26 | DISCH ---
DISCHARGE INSTRUCTIONS Condition on Discharge Condition on Discharge: Stable Activity After Discharge Activity Instructions for Disc: Avoid exertion Other activity instructions: No lifting more than 20 pounds for 2 weeks Diet after Discharge Diet after Discharge: Low Fat Wound Incision Care Other wound/incision instructi: May shower in 24 hours Contacting the after DC Call your doctor for: If your condition worsens Follow-Up Follow up with: Dr. Augustine in 2 weeks MATT AUGUSTINE MD Oct 19, 2020 10:26
[2020-10-19] MEDS ORDERED: PROCHLORPERAZINE 10 MG/2 ML VIAL. ONE (10:44)
[2020-10-19] MEDS ORDERED: MORPHINE SULFATE 2 MG/ML VIAL. ONE (10:44)
[2020-10-19] MEDS: MORPHINE SULFATE 2 MG/ML VIAL. IVP PRN ×2 (10:52→11:04)
[2020-10-19] MEDS ORDERED: HYDROmorphone 2 MG/ML VIAL ONE (10:58)
[2020-10-19] MEDS: HYDROmorphone 2 MG/ML VIAL IVP PRN ×4 (11:03→11:49)
[2020-10-19] MEDS ORDERED: OXYC-325 PO (11:12)
[2020-10-19] MEDS ORDERED: oxyCODONE/APAP 5/325 1 TAB TABLET PO ONE ×2 (11:15)
[2020-10-19 11:47] VITALS: BP 159/90
--- NOTE | 2020-10-23 12:07 | PATHOLOGY ---
[facility] Accession Number: [id number] . 01 Material submitted: . gallbladder - GALLBLADDER . 01 Clinical history: . BILINARY DYSKINESIA LAPAROSCOPIC CHOLECYSTECTOMY . 02 Diagnosis: Gallbladder, excision: - Chronic cholecystitis; negative for malignancy. - Cholelithiasis. . Lymph node "pericystic duct region", excision: - Reactive hyperplasia, with sinus histiocytosis and focal lipogranulomatous inflammation. . (MLK:mml; 10/22/2020) [facility] 10/23/2020 1156 Local . 02 Electronically signed: . Racquel Maldonado MD, Pathologist NPI- [id number] . 01 Gross description: . Fixative: Formalin Labeled: Gallbladder Specimen received: Intact gallbladder Dimensions: 12.1 x 3.2 x 2.8 cm Serosa: [place] Lymph node: 1.8 x 0.8 x 0.6 Mucosa: Velvety, bile-stained Average wall thickness: 0.1 cm Calculi: Present displaying a yellow-brown and fragmented appearance Abnormalities: None identified . Student Services Rep body, fundus, and the cystic duct margin in cassette A1. The lymph node is bisected and submitted in cassette A2. (CAA; 10/21/2020) QAC/QAC 10/21/2020 1531 Local . 02 Pathologist provided ICD-10: K80.10 . 02 CPT . 071452 Specimen Comment: A courtesy copy of this report has been sent to [phone], [phone] Specimen Comment: [id number] Specimen Comment: Report sent to / DR SAMSON Performed at: [address], [place], [place] [id number] MD Ramo Beasley MD Phone: [phone] Performed at: [address], [place], [place] [id number] MD Guillermo Estes MD Phone: [phone]
== END 2020-10-19 12:10 | disposition home or self-care (01) ==
LOC: SURG 07:48
PROVIDERS: ATTEND Surgery
DX: K80.10 Calculus of gallbladder with chronic cholecystitis without obstruction (principal); K21.9 Gastro-esophageal reflux disease without esophagitis; M19.90 Unspecified osteoarthritis, unspecified site; F41.9 Anxiety disorder, unspecified; F32.9 Major depressive disorder, single episode, unspecified; Z98.51 Tubal ligation status; Z98.890 Other specified postprocedural states; Z79.899 Other long term (current) drug therapy; Z72.89 Other problems related to lifestyle; Z88.8 Allergy status to other drugs, medicaments and biological substances
CPT/HCPCS: 47562; 81025; A4364; A4930; A6219; J0780; J1100; J1170; J1885; J2250; J2270; J2405; J2704; J2710; J3010; J3490; 88304; A4657

== ENCOUNTER 2020-10-20 09:37 | Emergency (ER) | payer OTHER ==
[~2020-10-20] VITALS: Ht 183.5 cm; Wt 156.0 kg
[~2020-10-20 09:37] MED LIST changes: -IV RINGERS,LACTATED 1000ML 1,000 ML IV SCH; +OXYC-325 PO; -PROCHLORPERAZINE 10 MG/2 ML VIAL. IVP PRN; -ceFAZolin SODIUM 3 GM in IV DEXTROSE 5% 100ML 100 ML IV PRN; -fentaNYL PF VIAL 100 MCG/2 ML VIAL IVP PRN
[2020-10-20 09:43] VITALS: BP 145/80
--- NOTE | 2020-10-20 10:17 | PHYS DOC ---
Past Medical History Past Medical History: Other Additional Past Medical Histor: GALBLADDER DISEASE Past Surgical History: Cholecystectomy Smoking Status: Never Smoker Alcohol Use: Occasionally Drug Use: None Adult General Chief Complaint Chief Complaint: WOUND CHECK [facility] HPI Patient is a 35 year old female status post glossectomy yesterday presents emergency department to have her wound evaluated. Patient notes that she has had moderate amount of bleeding and discharge from periumbilical incision site was concerned that it may have been damaged. Patient does not recall any injury to the area or popping sensation. States her pain has been the same. Denies any fevers, chills, nausea or vomiting. Review of Systems Review of Systems Constitutional: Denies fever or chills [] Eyes: Denies change in visual acuity, redness, or eye pain [] HENT: Denies nasal congestion or sore throat [] Respiratory: Denies cough or shortness of breath [] Cardiovascular: No additional information not addressed in HPI [] GI: Denies abdominal pain, nausea, vomiting, bloody stools or diarrhea [] : Denies dysuria or hematuria [] Musculoskeletal: Denies back pain or joint pain [] Integument: Denies rash or skin lesions [] Neurologic: Denies headache, focal weakness or sensory changes [] Endocrine: Denies polyuria or polydipsia [] All other systems were reviewed and found to be within normal limits, except as documented in this note. Allergies Allergies Allergies Coded Allergies Type Severity Reaction Last Updated Verified nickel Allergy Intermediate Rash 10/19/20 Yes Physical Exam Physical Exam Constitutional: Well developed, well nourished, no acute distress, non-toxic appearance. [] HENT: Normocephalic, atraumatic, bilateral external ears normal, oropharynx moist, no oral exudates, nose normal. [] Eyes: PERRLA, EOMI, conjunctiva normal, no discharge. [] Neck: Normal range of motion, no tenderness, supple, no stridor. [] Cardiovascular:Heart rate regular rhythm, no murmur [] Lungs & Thorax: Bilateral breath sounds clear to auscultation [] Abdomen: Bowel sounds normal, soft, no tenderness, no masses, no pulsatile masses. All 4 incision sites evaluated and appear clean dry and intact Skin: Warm, dry, no erythema, no rash. [] Back: No tenderness, no CVA tenderness. [] Extremities: No tenderness, no cyanosis, no clubbing, ROM intact, no edema. [] Neurologic: Alert and oriented X 3, normal motor function, normal sensory function, no focal deficits noted. [] Psychologic: Affect normal, judgement normal, mood normal. [] Current Patient Data Vital Signs Vital Signs Date Time Temp Pulse Resp B/P (MAP) Pulse Ox O2 Delivery O2 Flow Rate FiO2 10/20/20 09:43 98.4 67 16 145/80 (101) 95 Room Air 98.4 EKG EKG [] Radiology/Procedures Radiology/Procedures [] Course & Med Decision Making Course & Med Decision Making Pertinent Labs and Imaging studies reviewed. (See chart for details) 35-year-old female presenting the emergency department for wound evaluation status post cholecystectomy. Incision sites evaluated and there is no evidence of bleeding at this time. Will provide bandage and I gave patient specific instructions on wound care and reasons to return. Patient verbalized understanding agreement discharge plan Dragon Disclaimer Dragon Disclaimer This electronic medical record was generated, in whole or in part, using a voice recognition dictation system. Departure Departure Impression: Primary Impression: Visit for wound check Disposition: HOME / SELF CARE / HOMELESS Referrals: MAX SAMSON MD (PCP) Patient Instructions: Incision Care Additional Instructions: EMERGENCY DEPARTMENT GENERAL DISCHARGE INSTRUCTIONS Thank you for coming to [facility] Emergency Department (ED) today and trusting us with you care. We trust that you had a positive experience in our Emergency Department. If you wish to speak to the department management, you may call the Director at [phone]. YOUR FOLLOW UP INSTRUCTIONS ARE FOLLOWS: 1. Do you have a private Doctor? If you do not have a private doctor, please ask for a resource list of physicians or clinics that may be able to assist you with follow up care. 2. The Emergency Physicain has interpreted your x-rays. The X-Ray specialist will also review them. If there is a change in the findings, you will be notified in 48 hours when at all possible. 3. A lab test or culture has been done, your results will be reviewed and you will be notified if you need a change in treatment. ADDITIONAL INSTRUCTIONS AND INFORMATION: 1. Your care today has been supervised by a physician who is specially trained in emergency care. Many problems require more than one evaluation for a complete diagnosis and treatment. We recommend that you schedule your follow up appointment as recommended to ensure complete treatment of you illness or injury. If you are unable to obtain follow up care and continue to have a problem, or if your condition worsens, we recommend that you return to the ED. 2. We are not able to safely determine your condition over the phone nor are we able to give sound medical advice over the phone. For these safety reasons, if you call for medical advice we will ask you to come to the ED for further evaluation. 3. If you have any questions regarding these discharge instructions please call the ED at [phone]. SAFETY INFORMATION: In the interest of safety, wellness, and injury prevention; we encourage you to wear your sealbelt, if you smoke; quite smoking, and we encourage family to use a protective helmet for bicycling and other sporting events that present an increased risk for head injury. IF YOUR SYMPTOMS WORSEN OR NEW SYMPTOMS DEVELOP, OR YOU HAVE CONCERNS ABOUT YOUR CONDITION; OR IF YOUR CONDITION WORSENS WHILE YOU ARE WAITING FOR YOUR FOLLOW UP APPOINTMENT; EITHER CONTACT YOUR PRIMARY CARE DOCTOR, THE PHYSICIAN WHOSE NAME AND NUMBER YOU WERE GIVEN, OR RETURN TO THE ED IMMEDIATELY. ADAM FISHMAN MD Oct 20, 2020 10:17
== END 2020-10-20 10:39 | disposition home or self-care (01) ==
LOC: ER 09:37
DX: S30.92XA Unspecified superficial injury of abdominal wall, initial encounter (principal); Z90.49 Acquired absence of other specified parts of digestive tract; X58.XXXA Exposure to other specified factors, initial encounter; Y93.89 Activity, other specified; Y92.89 Other specified places as the place of occurrence of the external cause; Y99.8 Other external cause status
CPT/HCPCS: 99281